=== PATIENT | male | born 1985 | race Caucasian/White ===

== ENCOUNTER 2020-07-03 21:06 | Emergency (ER) | payer OTHER ==
[~2020-07-03] VITALS: Ht 182.9 cm; Wt 157.9 kg
--- NOTE | 2020-07-03 21:53 | NUR ---
DR. PHILLIP AT BEDSIDE FOR MSE.
[2020-07-03] MEDS ORDERED: LEVO100T PO (21:59)
[2020-07-03] MEDS ORDERED: HYDROCODONE/APAP 10-325 MG TABLET ONE ×2 (22:06→23:23)
[2020-07-03] MEDS ORDERED: HYDROCODONE/APAP 10-325 MG TABLET PO ONE ×2 (22:15→23:15)
[2020-07-03 23:32] VITALS: BP 136/85
--- NOTE | 2020-07-03 23:33 | NUR ---
Patient discharged to home in stable condition with mother taking patient home. Written and verbal after care instructions given. Patient verbalizes understanding of instructions. Stressed follow up or return to ER for worsening s/s.
== END 2020-07-03 23:33 | disposition home or self-care (01) ==
LOC: ER 21:09
DX: R51 Headache (principal); K08.89 Other specified disorders of teeth and supporting structures; F17.290 Nicotine dependence, other tobacco product, uncomplicated; E03.9 Hypothyroidism, unspecified; R03.0 Elevated blood-pressure reading, without diagnosis of hypertension
CPT/HCPCS: A4663